=== PATIENT | male | born 1965 | race Caucasian/White ===

== ENCOUNTER → 2021-01-16 | Outpatient (CLI) | payer OTHER ==
[~2021-01-16] MED LIST: HYDR25TA PO; LOSA100T14 PO; OMEP20TA63 PO; PARO40TA61 PO; RIZA10TA PO; vitamin D3
== END ==
LOC: LAB 07:30
PROVIDERS: ATTEND Nurse Anesthetist, Certified Registered
DX: Z01.812 Encounter for preprocedural laboratory examination (principal); R19.7 Diarrhea, unspecified; Z20.822 Contact with and (suspected) exposure to COVID-19
CPT/HCPCS: U0003

== ENCOUNTER → 2021-01-20 | Day surgery (SDC) | payer OTHER ==
[~2021-01-20] MED LIST changes: +GLYCOPYRROLATE 1 MG/5 ML VIAL. ONE; +IPRATRPIUM/ALBUTEROL 0.5/2.5MG 3 ML NEBU. NEB PRN; +IV RINGERS SOLUTION,LACTATED 1,000 ML IV SCH; +LIDOCAINE 2% PF 5 ML VIAL. ONE; +MIDAZOLAM HCL PF 2 MG/2 ML VIAL. IV ONE; +ONDANSETRON PF 4 MG/2 ML VIAL. IV PRN; +PROPOFOL 10,000 MCG/ML (20ML) VIAL IV ONE
[2021-01-20 09:11] VITALS: BP 122/80
--- NOTE | 2021-01-26 16:20 | PATHOLOGY ---
[facility] Accession Number: [id number] . 01 Material submitted: . PART A: small bowel - SMALL BOWEL FOR CELIAC PART B: stomach - ANTRUM FOR GASTRITIS. Modifiers: ANTRUM PART C: esophagus - DISTAL ESOPHAGUS FOR REFLUX. Modifiers: distal PART D: colon - RANDOM COLON BIOPSY FOR DIARRHEA PART E: sigmoid colon - SIGMOID POLYP PART F: rectum - RECTAL POLYP BIOPSY . 01 Clinical history: . PRE-OPERATIVE DIAGNOSIS:REFLUX OPERATIVE PROCEDURE: EGD COLONOSCOPY . 02 Diagnosis: A. Small bowel biopsies: - No significant pathologic abnormalities. . B. Gastric biopsies, antrum: - Congestion and focal slight chronic inflammation. . C. Esophageal biopsy, distal esophagus: - Reflux esophagitis. . D. Colonic mucosa, random colon biopsies: - No significant pathologic abnormalities. . E. Colon biopsy, sigmoid polyp: - Hyperplastic polyp. . F. Colorectal biopsy, rectal polyp: - Tubular adenoma. . (JPM:bacilio; 01/26/2021) S 01/26/2021 1416 Local . 02 Comment: Sections of the small bowel biopsy reveal segments of small intestine mucosa. Where best oriented, the mucosal villi show no sprue-like changes or significant inflammatory changes. . Sections of the gastric biopsy reveal segments of gastric antral mucosa showing congestion and focal slight chronic inflammation. An immunoperoxidase stain for Helicobacter is negative for Helicobacter organisms. . Sections of the distal esophageal biopsy reveal a tangentially oriented segment of hyperplastic squamous esophageal mucosa supportive of the distal of reflux esophagitis. There is no evidence of Sun's change, dysplasia or malignancy. . Sections of the random colon biopsy reveal multiple segments of colonic mucosa. There is no evidence of a chronic destructive colitis, lymphocytic colitis, or collagenous colitis. . Sections of the sigmoid colon biopsy reveal a hyperplastic polyp. . Sections of the rectal biopsy reveal a tubular adenoma. There is no high grade dysplasia or evidence of malignancy. (JPM:bacilio; 01/26/2021) . Special stain performed: Immunoperoxidase stain for Helicobacter on B1 . 02 Electronically signed: . Alan Hernandez MD, Pathologist NPI- [id number] . 01 Gross description: . A. The specimen is received in formalin, labeled "[place], small bowel biopsy for celiac". Received are two segments of pale bowers tissue measuring 0.3 and 0.4 cm in maximum dimensions. The specimen is submitted entirely in cassette A1. . B. The specimen is received in formalin, labeled "[place], antrum for gastritis". Received are two segments of pale bowers tissue measuring 0.2 and 0.3 cm in maximum dimensions. The specimen is submitted entirely in cassette B1. . C. The specimen is received in formalin, labeled "[place], distal esophagus for reflux". Received is a segment of pale bowers tissue measuring 0.3 cm in maximum dimensions. The specimen is submitted entirely in cassette C1. . D. The specimen is received in formalin, labeled "[place], random colon biopsy for diarrhea". Received are four segments of pale bowers tissue ranging in size from 0.3-0.4 cm in maximum dimensions. The specimen is submitted entirely in cassette D1 . E. The specimen is received in formalin, labeled "[place], sigmoid polyp biopsy. Received is a segment of pale bowers tissue measuring 0.8 cm in maximum dimensions. The specimen is submitted entirely in cassette E1. . F. The specimen is received in formalin, labeled "[place], rectal polyp biopsy". Received is a segment of pale bowers tissue measuring 0.5 cm in maximum dimensions. The specimen is submitted entirely in cassette F1. (CAA; 01/23/2021) QAC/QAC 01/23/2021 1026 Local . 02 Pathologist provided ICD-10: K29.50, K21.00, K63.5, D12.8 . 02 CPT . 843160, 468506, 655657, [id number], 376220, [id number], [id number] Specimen Comment: A courtesy copy of this report has been sent to [phone], [phone] Specimen Comment: [id number] Specimen Comment: Report sent to / DR TANG Performed at: 01 [facility] [address], [place], [place] [id number] MD Dami Thomas MD Phone: [phone] Performed at: 02 [facility] [address] [place], [place] [id number] MD Alan Hernandez MD Phone: [phone]
== END | disposition home or self-care (01) ==
LOC: SURG 07:33
PROVIDERS: ATTEND Emergency Medicine
DX: R19.7 Diarrhea, unspecified (principal); R10.13 Epigastric pain; R19.4 Change in bowel habit; K29.50 Unspecified chronic gastritis without bleeding; K21.00 Gastro-esophageal reflux disease with esophagitis, without bleeding; D12.8 Benign neoplasm of rectum; K63.89 Other specified diseases of intestine; Z79.899 Other long term (current) drug therapy; Z88.8 Allergy status to other drugs, medicaments and biological substances
CPT/HCPCS: 43239; 45380; J2001; J2704; J3490; J7120